=== PATIENT | female | born 1985 | race Two or more races ===

== ENCOUNTER → 2020-01-27 | Outpatient (CLI) | payer MEDICAID ==
[2020-01-27 09:28] LABS: Basophils # (auto) 0 10 ^3/uL (0-0.2); Basophils % (auto) 0.5 % (0.0-2.0); Eosinophils # (auto) 0.2 10 ^3/uL (0-0.8); Eosinophils % (auto) 2.2 % (0.0-7.0); Hematocrit 28.3 % (36.0-46.0); Hemoglobin 8.6 g/dL (12.2-16.2); Lymphocytes # (auto) 1.7 10 ^3/uL (0.4-5.4); Lymphocytes % (auto) 18.3 % (10.0-50.0); Mean Corpuscular Hemoglobin 22.3 pg (28.0-32.0); Mean Corpuscular Hgb Conc. 30.5 g/dL (32.0-36.0); Monocytes # (auto) 0.7 10 ^3/uL (0-1.3); Monocytes % (auto) 7.2 % (0.0-12.0); Neutrophils # (auto) 6.6 10 ^3/uL (1.6-8.6); Neutrophils % (auto) 71.8 % (37.0-80.0); Nucleated Red Blood Cells % 0.1 %; Platelet Count (auto) 433 10^3/uL (140-450); Red Blood Cells 3.88 10^6/uL (4.0-5.20); Red Cell Distribution Width 17.9 % (11.8-14.3); White Blood Cell 9.1 10^3/uL (4.4-10.8)
== END | disposition home or self-care (01) ==
LOC: LAB 09:08
PROVIDERS: ATTEND Obstetrics & Gynecology
DX: Z11.3 Encounter for screening for infections with a predominantly sexual mode of transmission (principal); O99.810 Abnormal glucose complicating pregnancy; Z3A.00 Weeks of gestation of pregnancy not specified
CPT/HCPCS: 36415; 82951; 85025

== ENCOUNTER 2020-02-19 14:09 | Observation (INO) | payer MEDICAID | END 2020-02-19 16:20 | disposition home or self-care (01) | DRG 566 | LOC: LDRP 14:09 | PROVIDERS: ADMIT Obstetrics & Gynecology; ATTEND Obstetrics & Gynecology | DX: O24.410 Gestational diabetes mellitus in pregnancy, diet controlled (principal); Z3A.36 36 weeks gestation of pregnancy | CPT/HCPCS: 59025; 76805; 76818; 81002; 82962; G0378 ==

== ENCOUNTER 2020-02-25 17:15 | Inpatient (IN) | payer MEDICAID ==
[~2020-02-25] VITALS: Ht 152.4 cm; Wt 100.7 kg
[2020-02-25] MEDS ORDERED: LACT. RINGERS/OXYTOCIN 20UNITS 1,000 ML IV SCH (19:08)
[2020-02-25] MEDS ORDERED: LIDOCAINE 2%HCL (LOCAL ANESTH.) INJ 20ML MDV ID ONE (19:15)
[2020-02-25] MEDS ORDERED: DERMOPLAST 60ML BOTTLE TOP PRN (19:15)
[2020-02-25] MEDS ORDERED: PHISODERM TOP SOLN 240ML BTL TOP PRN (19:15)
[2020-02-25] MEDS ORDERED: WITCH HAZEL-GLYCERIN PAD TOP PRN (19:15)
[2020-02-25 19:59] LABS: Basophils # (auto) 0.1 10 ^3/uL (0-0.2); Eosinophils # (auto) 0.3 10 ^3/uL (0-0.8); Hemoglobin 8.6 g/dL (12.2-16.2); Monocytes # (auto) 0.6 10 ^3/uL (0-1.3)
[2020-02-25] MEDS: miSOPROStol 50 MCG per PRE-CUT 1/2 TAB PO PRN ×2 (19:59→23:58)
[2020-02-25] MEDS: LACTATED RINGER'S 1,000 ML IV SCH (20:00)
[2020-02-25 20:01] LABS: Basophils % (auto) 0.6 % (0.0-2.0); Eosinophils % (auto) 2.8 % (0.0-7.0); Hematocrit 29.2 % (36.0-46.0); Mean Corpuscular Hemoglobin 21.5 pg (28.0-32.0); Mean Corpuscular Hgb Conc. 29.4 g/dL (32.0-36.0); Mean Corpuscular Volume 73.1 fL (80.0-100.0); Neutrophils # (auto) 6.5 10 ^3/uL (1.6-8.6); Neutrophils % (auto) 69.6 % (37.0-80.0); Nucleated Red Blood Cells % 0.1 %; Platelet Count (auto) 465 10^3/uL (140-450); Red Blood Cells 3.99 10^6/uL (4.0-5.20); Red Cell Distribution Width 19.3 % (11.8-14.3); White Blood Cell 9.4 10^3/uL (4.4-10.8)
[2020-02-25] MEDS: ceFAZolin 1GM/50ML 50 ML IV SCH (20:01)
[2020-02-25] MEDS: ACCU-CHEK COMFORT CURVE STRIP VI SCH ×2 (20:04→23:51)
[2020-02-25 20:06] LABS: Urine Bacteria NONE SEEN /hpf (None Seen); Urine Blood 1+ /uL (Negative); Urine Mucus FEW (None Seen); Urine Specific Gravity 1.031 (1.001-1.035); Urine WBC 8 /hpf (0 - 5)
[2020-02-25 20:14] LABS: Albumin 2.6 g/dL (3.4-5.0); Calcium 8.3 mg/dL (8.5-10.1); Potassium 4.3 mmol/L (3.5-5.1)
[2020-02-25 20:15] LABS: INR 0.97 (0.9-1.15); Partial Thromboplastin Time 25.7 sec (23.64-32.05)
[2020-02-25 20:17] LABS: Bilirubin, Total 0.2 mg/dL (0.2-1.0); Total Protein 7.3 g/dL (6.4-8.2)
[2020-02-25 20:19] LABS: Amphetamine Screen, Urine NEGATIVE (NEGATIVE); Barbiturate Scree,Urine NEGATIVE (NEGATIVE); Benzodiazephine Screen, Urine NEGATIVE (NEGATIVE); Cannabinoid Screen, Urine NEGATIVE (NEGATIVE); Cocaine Screen, Urine NEGATIVE (NEGATIVE); Opiate Scree,Urine NEGATIVE (NEGATIVE); Phencyclidine Screen, Urine NEGATIVE (NEGATIVE)
[2020-02-26] MEDS: LACTATED RINGER'S 1,000 ML IV SCH ×2 (02:00→06:33)
[2020-02-26] MEDS: miSOPROStol 50 MCG per PRE-CUT 1/2 TAB PO PRN (03:56)
[2020-02-26] MEDS: ceFAZolin 1GM/50ML 50 ML IV SCH ×2 (03:56→07:58)
[2020-02-26] MEDS: ACCU-CHEK COMFORT CURVE STRIP VI SCH (04:03)
[2020-02-26] MEDS ORDERED: miSOPROStol 100 mcg TAB ONE (07:52)
[2020-02-26] MEDS ORDERED: METHYLERGONOVINE MALEATE 0.2 MG/ML AMP IM ONE (08:22)
[2020-02-26] MEDS ORDERED: ACETAMINOPHEN 325 MG TAB PO PRN (08:45)
[2020-02-26] MEDS: IBUPROFEN 600 MG TAB PO PRN ×2 (09:03→18:52)
--- NOTE | 2020-02-26 09:25 | NUR ---
Ambulation: Patient OOB with standby assistance by RN. Patient ambulated to bathroom with steady gait. Patient able to void without difficulty. [facility] teaching provided with returned demonstration by patient. Clean gown provided and bed linen changed. Patient ambulated back to bed with steady gait and no distress noted.
[2020-02-26 11:24] VITALS: BP 102/55
[2020-02-26 14:52] VITALS: BP 105/51
[2020-02-26] MEDS ORDERED: PREN-96 PO (14:59)
[2020-02-26] MEDS ORDERED: FERR-7 PO (14:59)
[2020-02-26 19:00] VITALS: BP 119/57
[2020-02-26 22:50] VITALS: BP 98/62
[2020-02-26] MEDS: FERROUS SULFATE 325 MG TAB PO SCH (23:59)
[2020-02-27 02:46] VITALS: BP 102/59
[2020-02-27 04:06] LABS: RPR Non Reactive (Non Reactive)
[2020-02-27] MEDS: FERROUS SULFATE 325 MG TAB PO SCH (05:40)
--- NOTE | 2020-02-27 06:20 | NUR ---
Report received from Steven Bird RN on stable pt. Assumed care Addendum: 02/27/20 at 0856 by Clau Donnelly RN Amended: Links added.
[2020-02-27 07:05] VITALS: BP 94/47
[2020-02-27 11:15] VITALS: BP 105/59
--- NOTE | 2020-02-27 11:35 | NUR ---
Discharge: Discharge instructions given as ordered. Pt encouraged to follow up with [facility] as instructed. All questions and concerns addressed. Patient verbalized understanding. Medication reconciliation completed and copy given to patient. All required/requested vaccines given and copies of vaccinations given to patient. Patient encouraged to prepare to depart unit.
--- NOTE | 2020-02-27 11:40 | NUR ---
IV removal 20g IV DC'd from left forearm with sterile technique, catheter fully intact. Pressure dressing applied to site. Patient tolerated procedure well. Addendum: 02/27/20 at 1150 by Clau Donnelly RN Amended: Links added.
--- NOTE | 2020-02-27 12:03 | NUR ---
Discharge: Patient ambulated with steady gait to vehicle with all personal belongings, accompanied by staff and family member. No distress noted at time of departure, no adverse changes in status since initial assessment.
== END 2020-02-27 12:03 | disposition home or self-care (01) | DRG 560 ==
LOC: LDRP 17:15 → OBSVTOIN 18:51 → NUR 19:55 → LDRP 19:56
PROVIDERS: ADMIT Specialist; ATTEND Specialist
PROC: 10E0XZZ Delivery of Products of Conception, External Approach (ICD-10-PCS; principal; 2020-02-25)
DX: O60.14X0 Preterm labor third trimester with preterm delivery third trimester, not applicable or unspecified (principal); E66.9 Obesity, unspecified; D64.9 Anemia, unspecified; O99.214 Obesity complicating childbirth; Z37.0 Single live birth; Z3A.37 37 weeks gestation of pregnancy; O24.420 Gestational diabetes mellitus in childbirth, diet controlled; Z11.59 Encounter for screening for other viral diseases; O99.824 Streptococcus B carrier state complicating childbirth
CPT/HCPCS: 36415; 59025; 59409; 80053; 80307; 81001; 81002; 82948; 82962; 84112; 85025; 85610; 85730; 86592; 86850; 86900; 86901; 86920; 96361; 96366; 96372; G0378; J0690; J2590

== ENCOUNTER 2021-09-08 18:13 | Inpatient (IN) | payer MEDICAID ==
[~2021-09-08] VITALS: Ht 30.5 cm; Wt 0.5 kg
[~2021-09-08 18:13] MED LIST: FERR-7 PO; PREN-96 PO
[2021-09-08] MEDS ORDERED: BUTORPHANOL TARTRATE 2 MG/1 ML VIAL IV PRN ×2 (21:00)
[2021-09-08] MEDS ORDERED: LACTATED RINGER'S 1,000 ML IV SCH ×2 (21:00→22:15)
[2021-09-08] MEDS ORDERED: PHISODERM TOP SOLN 240ML BTL TOP PRN (21:00)
[2021-09-08] MEDS ORDERED: LIDOCAINE 2%HCL (LOCAL ANESTH.) INJ 20ML MDV IJ PRN (21:00)
[2021-09-08] MEDS ORDERED: PROMETHAZINE HCL 25 MG/ML 1ML IV PRN (21:00)
[2021-09-08] MEDS ORDERED: DERMOPLAST 60ML BOTTLE TOP PRN (21:00)
[2021-09-08] MEDS ORDERED: WITCH HAZEL-GLYCERIN PAD TOP PRN (21:00)
[2021-09-08] MEDS ORDERED: PENICILLIN G POT 5MIL/D5 50ML 50 ML IV ONE (21:30)
[2021-09-08 22:04] LABS: Basophils # (auto) 0.1 10 ^3/uL (0-0.2); Eosinophils # (auto) 0.1 10 ^3/uL (0-0.8); Hemoglobin 7.6 g/dL (12.2-16.2); Lymphocytes # (auto) 1.7 10 ^3/uL (0.4-5.4); White Blood Cell 8.4 10^3/uL (4.4-10.8)
[2021-09-08 22:06] LABS: Basophils % (auto) 0.9 % (0.0-2.0); Eosinophils % (auto) 1.4 % (0.0-7.0); Hematocrit 26.2 % (36.0-46.0); Lymphocytes % (auto) 19.8 % (10.0-50.0); Mean Corpuscular Hemoglobin 20.3 pg (28.0-32.0); Mean Corpuscular Hgb Conc. 29.1 g/dL (32.0-36.0); Mean Corpuscular Volume 69.6 fL (80.0-100.0); Monocytes # (auto) 0.6 10 ^3/uL (0-1.3); Monocytes % (auto) 6.6 % (0.0-12.0); Neutrophils % (auto) 71.3 % (37.0-80.0); Nucleated Red Blood Cells % 0.2 %; Red Blood Cells 3.76 10^6/uL (4.0-5.20); Red Cell Distribution Width 19.3 % (11.8-14.3)
[2021-09-08] MEDS ORDERED: LACTATED RINGER'S 1,000 ML IV ONE (22:15)
[2021-09-08] MEDS ORDERED: ceFAZolin 1GM/50ML 50 ML IV ONE ×2 (22:15→22:41)
[2021-09-08 22:20] LABS: INR 0.96 (0.9-1.15)
[2021-09-08 22:21] LABS: Albumin 2.6 g/dL (3.4-5.0); BUN/Creatinine Ratio 24.6; Calcium 8.6 mg/dL (8.5-10.1); Potassium 4.1 mmol/L (3.5-5.1)
[2021-09-08 22:24] LABS: Bilirubin, Total 0.2 mg/dL (0.2-1.0); Total Protein 6.8 g/dL (6.4-8.2)
[2021-09-08] MEDS ORDERED: SODIUM CITR/CITRIC ACID ORAL SOLN 30 ML PO ONE (22:45)
[2021-09-08] MEDS ORDERED: TETRACAINE 1% INJ 2 ML VIAL IJ ONE (22:47)
[2021-09-08] MEDS ORDERED: MORPHINE SULF PF 2 MG/2 ML SYRG ONE (22:49)
[2021-09-08] MEDS ORDERED: MORPHINE SULFATE 4 MG/ML SYR/VIAL IV PRN (23:00)
[2021-09-08] MEDS ORDERED: ONDANSETRON HCL 4 MG/2 ML VIAL IV PRN (23:00)
[2021-09-08] MEDS ORDERED: ceFAZolin 1GM/50ML 50 ML IV SCH (23:00)
[2021-09-08] MEDS ORDERED: LACT. RINGERS/OXYTOCIN 20UNITS 1,000 ML IV SCH (23:00)
[2021-09-08] MEDS ORDERED: HYDR-4902 PO ×2 (23:50→23:59)
[2021-09-08] MEDS ORDERED: DOCU-94 PO ×2 (23:50→23:59)
[2021-09-08] MEDS ORDERED: CEPH500T PO ×2 (23:50→23:59)
[2021-09-08] MEDS ORDERED: IBU600T PO ×2 (23:50→23:59)
[2021-09-09] VITALS (20 sets, daily range): BP systolic 92–142; BP diastolic 39–70
[2021-09-09] MEDS ORDERED: IBUP800T27 PO (00:01)
[2021-09-09] MEDS ORDERED: ePHEDrine SULFATE 50 MG/ML AMP ONE (00:25)
[2021-09-09] MEDS ORDERED: oxyTOCIN 10 UNIT/ML 10ML VIAL ONE (00:26)
[2021-09-09] MEDS ORDERED: ONDANSETRON HCL 4 MG/2 ML VIAL ONE (00:27)
[2021-09-09] MEDS ORDERED: KETOROLAC TROMETH 30 MG/ML 1ML VIAL IV PRN (00:45)
[2021-09-09] MEDS ORDERED: diphenhdrAMINE HCL 50 MG/1 ML VL IV PRN (00:45)
[2021-09-09] MEDS ORDERED: NALBUPHINE HCL 10 MG/1ml INJECTION SUBCUT ONE (00:45)
[2021-09-09] MEDS ORDERED: ONDANSETRON HCL 4 MG/2 ML VIAL IV PRN (00:45)
[2021-09-09] MEDS ORDERED: HYDROmorphone HCL 2 MG/ML VL IV PRN ×2 (00:45→01:30)
[2021-09-09] MEDS ORDERED: NALOXONE HCL 0.4 MG/ML VIAL IV PRN (00:45)
[2021-09-09] MEDS ORDERED: DexAMETHasone SOD PHOS 10MG/1ML VIAL INJ IV PRN (00:45)
[2021-09-09] MEDS ORDERED: ACETAMINOPHEN IV 1000 MG/100ML (10MG/ML) IV PRN ×2 (01:30→17:00)
[2021-09-09] MEDS ORDERED: PENICILLIN G POTASSIUM 2,500,000 UNITS in D5W 5% 50 ML IV SCH (01:30)
[2021-09-09] MEDS: LACTATED RINGER'S 1,000 ML IV SCH ×3 (01:59→17:30)
[2021-09-09] MEDS: ceFAZolin 1GM/50ML 50 ML IV SCH ×3 (05:54→22:20)
[2021-09-09 06:34] LABS: Alcohol, Urine < 3.0 mg/dL (0-10); Amphetamine Screen, Urine NEGATIVE (NEGATIVE); Barbiturate Scree,Urine NEGATIVE (NEGATIVE); Benzodiazephine Screen, Urine NEGATIVE (NEGATIVE); Cannabinoid Screen, Urine NEGATIVE (NEGATIVE); Cocaine Screen, Urine NEGATIVE (NEGATIVE); Opiate Scree,Urine NEGATIVE (NEGATIVE); Phencyclidine Screen, Urine NEGATIVE (NEGATIVE)
[2021-09-09 07:01] LABS: Urine Bacteria NONE SEEN /hpf (None Seen); Urine Blood TRACE /uL (Negative); Urine Mucus FEW (None Seen); Urine Specific Gravity 1.027 (1.001-1.035); Urine WBC 2 /hpf (0 - 5)
[2021-09-09 08:28] LABS: Basophils # (auto) 0.1 10 ^3/uL (0-0.2); Basophils % (auto) 0.6 % (0.0-2.0); Eosinophils # (auto) 0 10 ^3/uL (0-0.8); Eosinophils % (auto) 0.4 % (0.0-7.0); Hematocrit 27.9 % (36.0-46.0); Hemoglobin 8.2 g/dL (12.2-16.2); Lymphocytes # (auto) 1.5 10 ^3/uL (0.4-5.4); Lymphocytes % (auto) 13.6 % (10.0-50.0); Mean Corpuscular Hgb Conc. 29.2 g/dL (32.0-36.0); Monocytes # (auto) 0.9 10 ^3/uL (0-1.3); Monocytes % (auto) 7.9 % (0.0-12.0); Neutrophils # (auto) 8.8 10 ^3/uL (1.6-8.6); Neutrophils % (auto) 77.5 % (37.0-80.0); Red Blood Cells 3.78 10^6/uL (4.0-5.20); White Blood Cell 11.3 10^3/uL (4.4-10.8)
[2021-09-09 08:31] LABS: Mean Corpuscular Hemoglobin 21.6 pg (28.0-32.0); Mean Corpuscular Volume 73.9 fL (80.0-100.0); Red Cell Distribution Width 21.5 % (11.8-14.3)
[2021-09-10] MEDS ORDERED: HYDROcodone-ACET 5/325MG TAB PO PRN (01:15)
[2021-09-10] MEDS ORDERED: BISACODYL 10 MG RECT SUPP PR PRN (01:15)
[2021-09-10 03:00] VITALS: BP 114/60
[2021-09-10] MEDS: HYDROcodone-ACET 5/325MG TAB PO PRN (03:10)
[2021-09-10] MEDS: SIMETHICONE 80 MG CHEWABLE TABLET PO SCH ×4 (05:49→22:00)
[2021-09-10] MEDS: ceFAZolin 1GM/50ML 50 ML IV SCH ×3 (05:49→22:27)
[2021-09-10 06:30] VITALS: BP 99/56
[2021-09-10] MEDS: IBUPROFEN 800 MG TAB PO PRN ×3 (07:03→22:27)
[2021-09-10 08:06] LABS: RPR Non Reactive (Non Reactive)
[2021-09-10] MEDS: DOCUSATE SOD 100 MG CAP PO SCH ×2 (10:46→22:27)
[2021-09-10 11:30] VITALS: BP 108/64
[2021-09-10 15:30] VITALS: BP 128/70
[2021-09-10] MEDS ORDERED: TETANUS-DIPTH-ACEL PERTUSSIS 0.5ML SYR Tdap IM ONE (19:15)
[2021-09-10 19:30] VITALS: BP 105/58
[2021-09-10 23:00] VITALS: BP 128/70
[2021-09-11] MEDS: HYDROcodone-ACET 5/325MG TAB PO PRN (00:45)
[2021-09-11 03:00] VITALS: BP 116/64
[2021-09-11] MEDS: SIMETHICONE 80 MG CHEWABLE TABLET PO SCH (05:33)
[2021-09-11] MEDS: ceFAZolin 1GM/50ML 50 ML IV SCH (05:33)
[2021-09-11 07:30] VITALS: BP 110/67
[2021-09-11 12:02] VITALS: BP 115/64
== END 2021-09-11 14:30 | disposition home or self-care (01) | DRG 540 ==
LOC: LDRP 18:13 → OBSVTOIN 20:46 → LDRP 09-09 03:21
PROVIDERS: ADMIT Obstetrics & Gynecology; ATTEND Obstetrics & Gynecology
PROC: 30233N1 Transfusion of Nonautologous Red Blood Cells into Peripheral Vein, Percutaneous Approach (ICD-10-PCS; 2021-09-08)
PROC: 10D00Z1 Extraction of Products of Conception, Low, Open Approach (ICD-10-PCS; principal; 2021-09-08 22:51)
DX: O32.1XX0 Maternal care for breech presentation, not applicable or unspecified (principal); O24.429 Gestational diabetes mellitus in childbirth, unspecified control; E66.01 Morbid (severe) obesity due to excess calories; O99.02 Anemia complicating childbirth; Z37.0 Single live birth; Z3A.39 39 weeks gestation of pregnancy; Z91.19 Patient's noncompliance with other medical treatment and regimen; Z20.822 Contact with and (suspected) exposure to COVID-19; Z23 Encounter for immunization
CPT/HCPCS: 36415; 59025; 76805; 80053; 80307; 81001; 81002; 82948; 82962; 84112; 85025; 85610; 85730; 86592; 86850; 86900; 86901; 86920; 87426; 90715; 94760; 94762; 96360; 96361; 96366; 96372; 96374; G0378; J0131; J0690; J2405; J2540; J2590; J7060

== ENCOUNTER 2023-10-09 14:49 | Inpatient (IN) | payer MEDICAID ==
[~2023-10-09] VITALS: Ht 152.4 cm; Wt 85.1 kg
[~2023-10-09 14:49] MED LIST changes: +CEPH500T PO; +DOCU-94 PO; +HYDR-4902 PO; +IBU600T PO; +IBUP-1456 PO
[2023-10-09 15:18] LABS: Urine Epithelial Cast None Seen /hpf (<5)
[2023-10-09 15:39] LABS: Urine Bacteria FEW /hpf (None Seen); Urine Blood 1+ /uL (Negative); Urine Clarity HAZY (Clear); Urine Color Yellow (Yellow); Urine Mucus FEW (None Seen); Urine Protein, UAD TRACE (Negative); Urine Specific Gravity 1.018 (1.001-1.035); Urine Urobilinogen Normal (Negative); Urine WBC 4 /hpf (0 - 5); Urine pH 6.5 (5.0-8.0)
[2023-10-09] MEDS ORDERED: SODIUM CHLORIDE 0.9% 1,000 ML IVB ONE (16:00)
[2023-10-09] MEDS ORDERED: MORPHINE SULFATE 4 MG/ML SYR/VIAL IV ONE (16:00)
[2023-10-09] MEDS ORDERED: ONDANSETRON HCL 4 MG/2 ML VIAL IV ONE (16:00)
[2023-10-09 16:24] LABS: Basophils # (auto) 0.1 10 ^3/uL (0-0.2); Eosinophils # (auto) 0 10 ^3/uL (0-0.8)
[2023-10-09 16:25] LABS: Basophils % (auto) 0.6 % (0.0-2.0); Hematocrit 30.8 % (36.0-46.0); Lymphocytes # (auto) 1.3 10 ^3/uL (0.4-5.4); Lymphocytes % (auto) 8.7 % (10.0-50.0); Mean Corpuscular Hemoglobin 20.1 pg (28.0-32.0); Mean Corpuscular Hgb Conc. 29.1 g/dL (32.0-36.0); Monocytes # (auto) 0.4 10 ^3/uL (0-1.3); Monocytes % (auto) 2.9 % (0.0-12.0); Neutrophils # (auto) 12.7 10 ^3/uL (1.6-8.6); Neutrophils % (auto) 87.8 % (37.0-80.0); Red Blood Cells 4.46 10^6/uL (4.0-5.20); Red Cell Distribution Width 17.6 % (11.8-14.3); White Blood Cell 14.4 10^3/uL (4.4-10.8)
[2023-10-09 16:47] LABS: Alanine Aminotransferase 15 U/L (7-40); Alkaline Phosphatase 82 U/L (46-116); Calcium 9.4 mg/dL (8.5-10.1)
[2023-10-09 16:48] LABS: Albumin 4.4 g/dL (3.2-4.8); Anion Gap 5 (5-15); Aspartate Aminotransferase 14 U/L (13-40); BUN/Creatinine Ratio 17.3 (10.0-20.0); Bilirubin, Total 0.3 mg/dL (0.2-1.0); Blood Urea Nitrogen 14 mg/dL (9-23); Carbon Dioxide 25 mmol/L (20-30); Chloride 106 mmol/L (98-107); Glucose 112 mg/dL (74-106); Potassium 4.2 mmol/L (3.5-5.1); Sodium 136 mmol/L (136-145); Total Protein 7.7 g/dL (5.7-8.2)
[2023-10-09 16:56] LABS: Anisocytosis Slight; Platelet Estimate Increased
[2023-10-09 16:57] LABS: Hypochromia Marked; Large Platelets FEW
[2023-10-09] MEDS ORDERED: PIPERACILLIN-TAZOB 3.375GM 100 ML IV ONE (19:00)
[2023-10-09] MEDS ORDERED: HYDROcodone-ACET 5/325MG TAB PO PRN (19:30)
[2023-10-09] MEDS ORDERED: DOCUSATE SOD 100 MG CAP PO PRN (19:30)
[2023-10-09] MEDS ORDERED: ONDANSETRON HCL 4 MG/2 ML VIAL IV PRN (19:30)
[2023-10-09] MEDS ORDERED: ACETAMINOPHEN 325 MG TAB PO PRN (19:30)
[2023-10-10 04:41] LABS: Basophils # (auto) 0.1 10 ^3/uL (0-0.2); Eosinophils # (auto) 0.5 10 ^3/uL (0-0.8); Hemoglobin 8.4 g/dL (12.2-16.2); Nucleated Red Blood Cells % 0.1 %; White Blood Cell 12.5 10^3/uL (4.4-10.8)
[2023-10-10 04:43] LABS: Basophils % (auto) 0.8 % (0.0-2.0); Eosinophils % (auto) 3.8 % (0.0-7.0); Hematocrit 28.3 % (36.0-46.0); Lymphocytes # (auto) 3.7 10 ^3/uL (0.4-5.4); Lymphocytes % (auto) 29.7 % (10.0-50.0); Mean Corpuscular Hemoglobin 20.5 pg (28.0-32.0); Mean Corpuscular Hgb Conc. 29.9 g/dL (32.0-36.0); Mean Corpuscular Volume 68.5 fL (80.0-100.0); Monocytes # (auto) 0.8 10 ^3/uL (0-1.3); Monocytes % (auto) 6.7 % (0.0-12.0); Neutrophils # (auto) 7.4 10 ^3/uL (1.6-8.6); Red Blood Cells 4.13 10^6/uL (4.0-5.20); Red Cell Distribution Width 18.1 % (11.8-14.3)
[2023-10-10 05:17] LABS: Alanine Aminotransferase 10 U/L (7-40); Albumin 3.9 g/dL (3.2-4.8); Alkaline Phosphatase 69 U/L (46-116); Anion Gap 8 (5-15); Aspartate Aminotransferase 12 U/L (13-40); BUN/Creatinine Ratio 16.3 (10.0-20.0); Bilirubin, Total 0.4 mg/dL (0.2-1.0); Blood Urea Nitrogen 13 mg/dL (9-23); Carbon Dioxide 26 mmol/L (20-30); Chloride 106 mmol/L (98-107); Glucose 115 mg/dL (74-106); Potassium 3.6 mmol/L (3.5-5.1); Sodium 140 mmol/L (136-145); Total Protein 6.9 g/dL (5.7-8.2)
[2023-10-10 05:36] LABS: Anisocytosis Slight; Hypochromia Marked; Platelet Estimate Increased
[2023-10-10 05:37] LABS: Stomatocytes Few
[2023-10-10 07:30] VITALS: PULSE 71; RESP 16; O2SAT 99
[2023-10-10] MEDS: cefTRIAXone 1GM/50ML D5W 50 ML IV SCH (08:52)
[2023-10-10] MEDS ORDERED: MANNITOL FTV 25% 12.5 GM/50 ML 50 ML IV ONE (11:00)
[2023-10-10 14:21] LABS: INR 1.02 (0.9-1.15); Partial Thromboplastin Time 27.3 SEC (24.5-34.5); Prothrombin Time 10.7 sec (9.3-11.8)
[2023-10-10] MEDS: TAMSULOSIN HYDROCHLORIDE 0.4 MG CAP PO SCH (18:20)
[2023-10-10 19:35] VITALS: PULSE 77; RESP 18; O2SAT 97
[2023-10-10 22:38] VITALS: BP 112/68; PULSE 73; RESP 16; TEMP 98.5; O2SAT 99
[2023-10-11] VITALS (7 sets, daily range): BP systolic 97–132; BP diastolic 59–79; PULSE 67–88; RESP 17–19; TEMP 97.8–98.5; O2SAT 94–100
[2023-10-11] MEDS ORDERED: INFLUENZA QUAD 2023-2024 0.5 ML SYRG IM ONE (03:00)
[2023-10-11] MEDS ORDERED: KETOROLAC TROMETH 30 MG/ML 1ML VIAL IV ONE (06:45)
[2023-10-11] MEDS: cefTRIAXone 1GM/50ML D5W 50 ML IV SCH (09:00)
[2023-10-11 09:39] LABS: Hepatitis B Surface Antigen Negative (Negative)
[2023-10-11 10:00] LABS: Hepatitis B Core IgM Negative; Hepatitis C Antibody Negative (Negative)
[2023-10-11] MEDS: TAMSULOSIN HYDROCHLORIDE 0.4 MG CAP PO SCH (17:16)
[2023-10-12 05:00] VITALS: BP 112/59; PULSE 65; RESP 17; TEMP 97.8; O2SAT 98
[2023-10-12 07:30] VITALS: PULSE 65
[2023-10-12 09:01] VITALS: BP 101/63; PULSE 67; RESP 19; TEMP 97.8; O2SAT 97
[2023-10-12] MEDS: cefTRIAXone 1GM/50ML D5W 50 ML IV SCH (09:55)
[2023-10-12] MEDS ORDERED: LEVO500T91 PO (11:01)
[2023-10-12 13:34] VITALS: BP 112/59; PULSE 65; RESP 18; TEMP 36.6; O2SAT 98
== END 2023-10-12 15:00 | disposition home or self-care (01) | DRG 463 ==
LOC: ER 14:49 → OVERFLOW 19:22 → EAST 10-10 22:37
PROVIDERS: ADMIT Nurse Practitioner Family; ATTEND Internal Medicine
DX: N13.6 Pyonephrosis (principal); D25.9 Leiomyoma of uterus, unspecified; K80.20 Calculus of gallbladder without cholecystitis without obstruction; E66.9 Obesity, unspecified; Z68.36 Body mass index [BMI] 36.0-36.9, adult; I10 Essential (primary) hypertension; Z71.3 Dietary counseling and surveillance; N83.202 Unspecified ovarian cyst, left side
CPT/HCPCS: 36415; 74176; 76775; 76856; 80053; 81001; 81025; 85025; 85610; 85730; 86705; 86803; 87086; 87340; G0378; J1885; J2405; J2543